=== PATIENT | male | born 1990 | race Caucasian/White ===

== ENCOUNTER 2023-04-22 18:33 | Outpatient (CLI) | payer BC | END 2023-04-22 23:59 | disposition critical access hospital (66) | LOC: EMS 18:33 | DX: R55 Syncope and collapse (principal); R11.2 Nausea with vomiting, unspecified; R20.2 Paresthesia of skin | CPT/HCPCS: A0425; A0427 ==

== ENCOUNTER 2023-04-22 19:09 | Emergency (ER) | payer BC ==
[2023-04-22 19:30] VITALS: O2SAT 100
[2023-04-22] MEDS ORDERED: PROMETHAZINE INJ 12.5 MG in SODIUM CHLORIDE 0.9% 50 ML IV STA (19:38)
--- NOTE | 2023-04-22 19:41 | ED Physician Documentation ---
PD HPI FOCAL NEURO - Stated complaint Stated Complaint: NEAR SYNCOPE - Chief complaint Chief Complaint: Neuro - History obtained from History obtained from: Patient - Additional information Additional information: Previously healthy 33-year-old gentleman went out to you with his and had a couple of drinks. He started to feel pale nauseous and threw up once. Developed a headache which has since gone away and his left side especially the left arm became tingly. He has no chest pain or trouble breathing. Does not smoke. Family history is that his father has some sort of heart problem but it developed at advanced age and they do not know the details. He went to the walk-in clinic prior to arrival and was referred here. He had EKG there which showed normal sinus rhythm with an incomplete right bundle branch block and no ST changes. From EMS he received IV Zofran which was not helpful for his nausea. PD PAST MEDICAL HISTORY - Past Medical History Past Medical History: No - Past Surgical History Past Surgical History: No - Present Medications Home Medications: Ambulatory Orders Medication Instructions Recorded Confirmed No Known Home Medications 04/22/23 04/22/23 - Allergies Allergies/Adverse Reactions: Allergies Allergy/AdvReac Type Severity Reaction Status Date / Time No Known Drug Allergies Allergy Verified 04/22/23 19:23 - Social History Does the pt smoke?: No Smoking Status: Never smoker Does the pt drink ETOH?: Yes Does the pt have substance abuse?: No PD ED PE NORMAL - Vitals Vital signs reviewed: Yes - General General: Alert and oriented X 3, No acute distress - HEENT HEENT: PERRL, EOMI - Neck Neck: Supple, no meningeal sign, No bony TTP - Cardiac Cardiac: RRR, No murmur - Respiratory Respiratory: No respiratory distress, Clear bilaterally - Abdomen Abdomen: Non tender - Neuro Neuro: Alert and oriented X 3, customer advisor 2-12 intact, No motor deficit, No sensory deficit, Normal speech, Other (Normal finger-nose and itbv-bf-bhox testing, normal gait) Eye Opening: Spontaneous Motor: Obeys Commands Verbal: Oriented GCS Score: 15 - Psych Psych: Normal mood, Normal affect NIHSS - Time Time: 19:30 - Level of Consciousness Level of consciousness: (0) Alert, Keenly responsive LOC Questions: (0) Answers both Q's correct LOC Commands: (0) Performs both correctly - Gaze Best Gaze: (0) Normal - Visual Visual: (0) No loss - Facial Palsy Facial Palsy: (0) Normal, symmetrical movement - Motor Arms (both separate) Motor Arm (right): (0) No drift Motor Arm (left): (0) No drift - Motor Legs (both separate) Motor Leg (right): (0) No drift Motor Leg (left): (0) No drift - Limb Ataxia Limb Ataxia: (0) Absent - Sensory Sensory: (0) Normal - Best Language Best Language: (0) No aphasia - Dysarthria Dysarthria: (0) Normal - Extinction and Inattention (formally neg Extinction and inattention: (0) No abnormality - Total Score/Results Total Score/Result: 0 Results - Vitals Vitals: Vital Signs - 24 hr 04/22/23 04/22/23 04/22/23 19:14 19:54 21:31 Temperature 36.6 C 37 C 37.4 C Heart Rate 71 83 98 Respiratory 15 20 20 Rate Blood Pressure 121/82 H 138/74 H 134/78 H O2 Saturation 100 100 100 Oxygen O2 Source Room air - Labs Labs: Laboratory Tests 04/22/23 04/22/23 04/22/23 19:29 19:29 20:53 WBC 11.6 H RBC 5.57 Hgb 16.5 Hct 50.1 MCV 89.9 MCH 29.6 MCHC 32.9 RDW 12.8 Plt Count 291 MPV 8.9 Neut # (Auto) 10.6 H Lymph # (Auto) 0.6 L [place] # (Auto) 0.3 Eos # (Auto) 0.0 Baso # (Auto) 0.1 Absolute Nucleated RBC 0.00 Nucleated RBC % 0.0 Sodium 137 Potassium 4.5 Chloride 101 Carbon Dioxide 25 Anion Gap 11.0 BUN 15 Creatinine 0.9 Estimated GFR (MDRD) 97 Glucose 87 Calcium 9.8 Total Bilirubin 0.9 AST 24 ALT 23 Alkaline Phosphatase 58 Troponin I High Sens 3.1 Total Protein 7.5 Albumin 5.0 Globulin 2.5 Albumin/Globulin Ratio 2.0 Ethyl Alcohol 10.0 - Rads (name of study) CT/CTA of head and neck are negative Relevant Findings:: Final report received, EMP independent interpretation of test PD Medical Decision Making - ED course ED course: 33-year-old gentleman had the cute onset of left arm tingling, presyncopal type dizziness (not vertigo) and feeling out of sorts with nausea and 1 episode of vomiting. His examination is unremarkable. Work-up demonstrates mild nonspecific leukocytosis with normal chemistries and troponin. CT angiography of the head and neck was negative. After diagnostics he was still feeling off, but ambulated normally for me in the department and had no ataxia or evidence of posterior stroke. No evidence of vertebral dissection on imaging. Offered hospital observation but patient preferring to go home and given close return precautions. Departure - Departure Disposition: Home, Self Care Clinical Impression: Dizziness, Tingling Condition: Good Record reviewed to determine appropriate education?: Yes Instructions: ED Dizziness [facility] Comments: You were seen today for dizziness, neck pain, left arm tingling. Work-up in the emergency department demonstrated normal blood work with the exception of very mild elevation in white blood cell count which is nonspecific. Troponin testing, electrolytes, kidney function etc. was all normal. CT angiography of the head and neck were normal without evidence of stroke, carotid disease, vertebral dissection. Return tomorrow if not better, sooner for new or worsening symptoms. Follow-up with your primary care physician after the holiday weekend for recheck. Forms: PCP List
[2023-04-22 19:47] LABS: BASOPHILS # (AUTO) 0.1 10^3/uL (0.0-0.1); BASOPHILS % (AUTO) 0.4 %; EOSINOPHILS % (AUTO) 0.3 %; HCT - HEMATOCRIT 50.1 % (42.0-52.0); HGB - HEMOGLOBIN 16.5 g/dL (14.0-18.0); LYMPHOCYTES # (AUTO) 0.6 10^3/uL (1.5-3.5); LYMPHOCYTES % (AUTO) 5.4 %; MEAN CORPUSCULAR HEMOGLOBIN 29.6 pg (27.0-31.0); MEAN CORPUSCULAR HGB CONC 32.9 g/dL (32.0-36.0); MEAN CORPUSCULAR VOLUME 89.9 fL (80.0-94.0); MEAN PLATELET VOLUME 8.9 fL (7.4-11.4); MONOCYTES # (AUTO) 0.3 10^3/uL (0.0-1.0); MONOCYTES % (AUTO) 2.7 %; NEUTROPHILS # (AUTO) 10.6 10^3/uL (1.5-6.6); NEUTROPHILS % (AUTO) 90.9 %; PLT - PLATELET COUNT 291 10^3/uL (130-450); RED BLOOD COUNT 5.57 10^6/uL (4.70-6.10); RED CELL DISTRIBUTION WIDTH 12.8 % (12.0-15.0); WHITE BLOOD COUNT 11.6 x10^3/uL (4.8-10.8)
[2023-04-22] MEDS ORDERED: PROMETHAZINE 25 MG/1 ML VIAL ONE (19:53)
[2023-04-22 19:56] LABS: BILIRUBIN,TOTAL 0.9 mg/dL (0.2-1.0); CALCIUM 9.8 mg/dL (8.5-10.3); CREATININE 0.9 mg/dL (0.6-1.3); POTASSIUM 4.5 mmol/L (3.5-4.5); TOTAL PROTEIN 7.5 g/dL (6.4-8.9)
[2023-04-22] MEDS ORDERED: iohexoL-300 100 ML VIAL IVP ONE (20:38)
--- NOTE | 2023-04-22 20:50 | CT Report ---
PROCEDURE: HEAD WO INDICATIONS: NAUSEA DIZZY TECHNIQUE: Noncontrast 4.5 mm thick angled axial sections acquired from the foramen magnum to the vertex. For r adiation dose reduction, the following was used: automated exposure control, adjustment of mA and/or kV according to patient size. COMPARISON: CTA head and neck 04/22/2023 FINDINGS: Image quality: Excellent. CSF spaces: Basal cisterns are patent. No extra-axial fluid collections. Ventricles are normal in size and shape. Brain: No midline shift. No intracranial masses or hemorrhage. Ewing-white matter interface is norm al. Skull and face: Calvarium and visualized facial bones are intact, without suspicious lesions. Sinuses: Visualized sinuses and mastoids are clear. IMPRESSION: 1. No acute intracranial process. Reviewed by: Liza Villela MD on 04/22/2023 8:49 PM PST Approved by: Liza Villela MD on 04/22/2023 8:49 PM PST Station ID: [id number]
--- NOTE | 2023-04-22 20:53 | CT Report ---
PROCEDURE: CT Angio Head/Neck INDICATIONS: l SIDE TINGLY TECHNIQUE: After the administration of intravenous contrast, 1 mm thick sections acquired from the aortic arch t hrough the [place]. 3-dimensional cdlreky-rvusarxgv-tddxuqztqe (MIP) and/or volume renderin g reformats were acquired of the central intracranial vasculature and neck separately. For radiation dose reduction, the following was used: automated exposure control, adjustment of mA and/or kV acco rding to patient size. COMPARISON: CT head 04/22/2023 FINDINGS: Image quality: Artifact is present at the lower neck limiting evaluation within this region. HEAD CT: CSF Spaces: Basal cisterns are patent. No extra-axial fluid collections. Ventricles are normal in size and shape. Brain: The brain is within normal limits for age and scanning technique. Skull and face: Calvarium and visualized facial bones appear intact, without suspicious lesions. Sinuses: Visualized sinuses and mastoids are clear. HEAD CT ANGIOGRAPHY: Anterior circulation: Intracranial internal carotid arteries are normal in size and flow. The flow within the paired anterior cerebral arteries is normal and symmetric. The flow within the middle cer ebral arteries is normal and symmetric. The anterior communicating artery is seen. No aneurysms are seen. Posterior circulation: Visualized portions of the vertebral arteries demonstrate normal caliber, and join to form a normal appearing basilar artery. Flow within the posterior cerebral arteries is norm al and symmetric. No aneurysms are seen. NECK CT ANGIOGRAPHY: Carotid system: The great vessels demonstrate a conventional anatomy as they arise from the aortic a rch. The origins of the common carotid arteries appear patent. The common carotid arteries demonstr ate normal caliber and courses. The bifurcation regions are both widely patent. The internal caroti d arteries demonstrate normal calibers and courses. Posterior circulation: The origins of the vertebral arteries both appear widely patent. The more hayes perior extracranial portions of both vertebral arteries also demonstrate normal courses and calibers. They join to form a normal appearing basilar artery. Soft tissues: Visualized neck soft tissues demonstrate no suspicious abnormalities. Bones: No suspicious bony lesions. Visualized cervical spine appears normally aligned. IMPRESSION: There are no areas of hemodynamically significant stenosis, vascular occlusion or aneurysmal dilation within the neck vasculature. The estimate of stenosis included in the report of the imaging study was calculated using the NASCET method Reviewed by: Liza Villela MD on 04/22/2023 8:51 PM PST Approved by: Liza Villela MD on 04/22/2023 8:51 PM [facility] Station ID: [id number]
[2023-04-22 21:38] VITALS: BP 134/78
[2023-04-22] MEDS ORDERED: ONDANSETRON ODT 4 MG Prepack 2 TL STA (21:47)
== END 2023-04-22 22:04 | disposition home or self-care (01) ==
LOC: ED 19:09
DX: R42 Dizziness and giddiness (principal); R20.2 Paresthesia of skin; M54.2 Cervicalgia
CPT/HCPCS: 36415; 70450; 70496; 70498; 80053; 80320; 84484; 85025; 96365; 99283; 99284; J7040; Q9967